=== PATIENT | female | born 1985 | race Caucasian/White ===

== ENCOUNTER 2020-03-27 13:29 | Emergency (ER) | payer SELFPAY ==
[2020-03-27 13:33] VITALS: BP 141/92; PULSE 109; RESP 18; TEMP 36.3; O2SAT 100; BMI 25.7
[2020-03-27 13:49] VITALS: BP 141/92; PULSE 109; RESP 15; O2SAT 100
[2020-03-27 14:24] LABS: Basophils % 0.4 %; Eosinophils # 0.1 10^3/uL (0.0-0.8); Eosinophils % 2.1 %; Hemoglobin 9.9 g/dL (11.5-15.3); Lymphocytes # 1.1 10^3/uL (0.8-4.8); Lymphocytes % 21.1 %; Mean Corpuscular HGB Conc 30.9 g/dL (30.0-36.0); Mean Corpuscular Hemoglobin 26.5 pg (28.0-34.0); Mean Corpuscular Volume 85.6 fL (81-99); Monocytes # 0.4 10^3/uL (0.2-0.9); Neutrophils # 3.68 10^3/uL (1.8-7.7); Neutrophils % 69.2 %; Nucleated Red Blood Cells % 0 %; Platelet Count 189 10^3/cmm (130-400); Red Blood Count 3.74 10^6/uL (4.1-5.3); Red Cell Distribution Width 14.1 % (12.1-15.1); White Blood Count 5.3 10^3/uL (4.0-10.0)
--- NOTE | 2020-03-27 14:28 | ED_ITS ---
HPI - General Adult General: Chief complaint: General Medical Stated complaint: swelling in feet and ankles Time Seen by Provider: 03/27/20 13:34 Source: patient and family Mode of arrival: ambulatory Limitations: no limitations History of Present Illness: HPI narrative: Patient is a 34-year-old female who presents to ED today with multiple medical complaints. It is hard to truly follow patient's symptomology as her speech is excessive and she often bounces from topic to topic. She seems to complain about right ear pain and fullness as well as a sore throat over the past few days. She often speaks about her chronic neck and back pain. States she has been falling asleep in weird positions causing her neck pain to worsen. She is complaining of bilateral lower extremity swelling that she has had intermittently over the past year or so however seems to be worse over the past 3 days. She complains of a rash mainly to her left lower extremity. She has been seen for this rash several times by previous providers and placed on antibiotics and steroids without improvement. She has an appointment with Dr. Hamilton, dermatology, on Friday for evaluation of the rash. When directly asked, she states her main concern/complaint today seems to be the bilateral leg swelling. Associated symptoms: Reports rash; Deny chest pain, dyspnea, headache(s), malaise, nausea, palpitations, syncope or vomiting Review of Systems Const: Reports: fatigue; Denies: fever(s), chills, body aches, change in appetite, change in weight or malaise Eyes: Denies: change in vision, blurry vision, photophobia, floaters or seeing flashes ENMT: Reports: throat pain, odynophagia and ear or mastoid pain; Denies: swelling of lips/tongue, ear discharge, change in hearing, tinnitus, nasal discharge, nasal congestion or sinus pain Card: Reports: swelling of feet/ankles; Denies: chest pain, palpitations, irregular heart rhythm, edema, lightheadedness, syncope, pre-syncope, dyspnea on exertion, orthopnea, leg pain with exertion or acrocyanosis Resp: Denies: dyspnea, productive cough, non-productive cough, pain on inspiration, change in phlegm color, hemoptysis or chest congestion GI: Denies: abdominal pain, nausea, vomiting, heartburn or diarrhea : Denies: flank pain, difficulty voiding, dysuria, urinary frequency, urinary urgency or urinary hesitancy Musc: Reports: neck pain (chronic), extremity pain and extremity swelling; Denies: back pain (chronic), joint pain, joint swelling, joint redness, joint warmth, joint stiffness, limited range of motion, muscle cramps or muscle weakness Skin/Breast: Reports: rash and pruritus Neuro: Denies: headache(s), numbness in extremities, weakness in extremities, sensory changes, difficulty walking, dizziness, vertigo or Slurred speech present PFSH ED PFSH: Medical History (Updated 03/27/20 @ 15:25 by CLAYTON Han) Agoraphobia with panic attacks Chronic back pain Degenerative disc disease, cervical Degenerative disc disease, lumbar Degenerative disc disease, thoracic Generalized anxiety disorder Major depressive disorder, single episode, moderate with anxious distress Nausea Other obsessive-compulsive disorder Social phobia, generalized Surgical History Status post delivery Status post tonsillectomy Family History Father Diabetes Hypertension Mother Diabetes Hypertension Cancer Breast cancer Social History Smoking and tobacco status: former smoker Alcohol intake: former Female Reproductive History: Date of last menstrual period: 07/06/19 Para: 1 Physical Exam Const: COMMON NORMALS: no acute distress, average body habitus, patient oriented x3, no limitations, healthy appearing, alert and well nourished GENERAL APPEARANCE: cooperative ORIENTATION/CONSCIOUSNESS: Yes awake, Yes oriented to person, Yes oriented to place and Yes oriented to time HENMT: COMMON NORMALS: normocephalic, atraumatic, hearing grossly normal bilaterally, external ears normal and EAC's normal HEAD & SCALP: normal to inspection, normocephalic and atraumatic FACE & SINUS: normal facial exam and sinuses nontender EXTERNAL EAR: Yes external ears normal EXTERNAL AUDITORY CANAL: EAC's normal TYMPANIC MEMBRANE: TM abnormal TM laterality: right Details: fluid behind TM THROAT: posterior oropharynx normal, tonsils normal and uvula midline Eye: COMMON NORMALS: Equal, round and reactive pupils present, EOMs intact bilaterally, conjunctivae normal and no scleral icterus GENERAL EYE: appearance normal, both eyes and all related structures CONJUNCTIVA: Yes conjunctivae normal PUPIL: Yes Equal, round and reactive pupils present Neck/C-Spine: COMMON NORMALS: full ROM, no lymphadenopathy and no meningeal signs Resp: COMMON NORMALS: normal respiratory effort and clear to auscultation bilaterally AUSCULTATION: clear to auscultation bilaterally Cardio: COMMON NORMALS: regular rate and regular rhythm RATE: regular rate RHYTHM: regular rhythm Back/Pelvis: THORACIC SPINE/UPPER BACK: Yes normal to inspection and Yes thoracic ROM normal LUMBAR SPINE/LOWER BACK: Yes normal to inspection and Yes lumbar ROM normal Extremity: OTHER: mild L>R bilateral LE edema; L side with mild pitting; swelling seems localized to ankles/feet; no calf swelling/tenderness; no changes to color/temp; pulses and cap refill equal bilaterally; rash noted to L LE-see skin assessment Neuro: GARCIA COMA SCALE: document GCS findings Garcia coma scale eye opening: Spontaneous Garcia coma scale verbal response: Orientated [place] coma scale motor response: Obey commands [place] coma scale total score: 15 COMMON NORMALS: patient oriented x3, moves all extremities, no focal motor deficits and no sensory deficits noted SENSORIUM/ORIENTATION: Yes alert, Yes oriented to person, Yes oriented to place and Yes oriented to time MENINGEAL SIGNS: Yes no meningeal signs Skin: OTHER: pt has hundreds of small erythematous papules, some of which are scabbed, to L LE; she has a few lesions to R LE and lower abdomen; there are no fluid filled lesions, plaques, or central clearings at this time Course Vital Signs: Vital signs: Vital Signs Temperature 97.3 F L 03/27/20 13:33 Pulse Rate 109 H 03/27/20 13:49 Respiratory Rate 15 03/27/20 13:49 Blood Pressure 114/85 03/27/20 15:03 Pulse Oximetry 99 03/27/20 15:03 [facility] [place] - General Adult Lab Data: Labs: Lab Results 03/27/20 03/27/20 Range/Units 14:19 14:19 WBC 5.3 (4.0-10.0) 10^3/ uL RBC 3.74 L (4.1-5.3) 10^6/u L Hgb 9.9 L (11.5-15.3) g/dL Hct 32.0 L (37.0-47.0) % MCV 85.6 (81-99) fL MCH 26.5 L (28.0-34.0) pg MCHC 30.9 (30.0-36.0) g/dL RDW 14.1 (12.1-15.1) % Plt Count 189 (130-400) 10^3/c mm MPV 10.0 (7.4-10.4) fL Neut % (Auto) 69.2 % Lymph % (Auto) 21.1 % [place] % (Auto) 7.0 % Eos % (Auto) 2.1 % Baso % (Auto) 0.4 % Neut # (Auto) 3.68 (1.8-7.7) 10^3/u L Lymph # (Auto) 1.1 (0.8-4.8) 10^3/u L [place] # (Auto) 0.4 (0.2-0.9) 10^3/u L Eos # (Auto) 0.1 (0.0-0.8) 10^3/u L Baso # (Auto) 0.0 (0.0-0.1) 10^3/u L Nucleated RBC % (a uto) 0 % Nucleated RBCs # 0.0 /100WBC Sodium 139 (136-145) mmol/L Potassium 3.9 (3.5-5.1) mmol/L Chloride 105 (98-107) mmol/L Carbon Dioxide 28 (22-29) mmol/L Anion Gap 9.9 (5-19) BUN 8 (6-20) mg/dL Creatinine 0.6 (0.5-0.9) mg/dL GFR Calculation 113.8 (90-130) mL/min Glucose 96 (65-115) mg/dL Calculated Osmolal ity 284 L (285-295) mOsm/k g Calcium 8.4 L (8.5-10.5) mg/dL Total Bilirubin 0.4 (0.15-1.2) mg/dL AST 17 (0-32) U/L ALT 25 (0-33) U/L Alkaline Phosphata se 99 (35-105) IU/L NT-Pro-B Natriuret Pep 48 (0-125) pg/mL Total Protein 6.5 L (6.6-8.7) g/dL Albumin 4.1 (3.5-5.2) g/dL Globulin 2.4 (1.3-4.6) g/dL Discharge Plan Discharge Patient Disposition: Home Clinical Impression: Bilateral edema of lower extremity, Rash Acute serous otitis media, right ear Qualifiers: Recurrence: non-recurrent Qualified Code(s): H65.01 - Acute serous otitis media, right ear Condition: Stable Prescriptions: No Action diazepam 5 mg tablet 5 mg PO TID PRN (Reason: anxiety) Qty: 90 RF: 3 hydroxyzine pamoate [Vistaril] 50 mg capsule 50 mg PO BID PRN (Reason: anxiety) Qty: 60 RF: 3 ibuprofen 800 mg tablet 800 mg PO Q8H PRN (Reason: pain) 30 Days Qty: 90 RF: 0 pantoprazole [Protonix] 40 mg tablet,delayed release (DR/EC) 40 mg PO QAM 30 Days Qty: 30 RF: 1 ondansetron HCl [Zofran] 4 mg tablet 4 mg PO Q8H PRN (Reason: nausea and vomiting) 5 Days Qty: 15 RF: 0 Multiple Vitamins Tablet 1 tab PO DAILY RF: 0 buspirone 10 mg Tablet 10 mg PO TID RF: 0 vitamin B complex Tablet 1 tab PO DAILY RF: 0 Elderberry Tabs 2 tab PO DAILY RF: 0 Vitamin C 2 tab PO DAILY RF: 0 Vitamin D3 1 tab PO PRN RF: 0 Remeron 15 mg tablet 7.5 mg PO BEDTIME RF: 0 Lexapro 20 mg tablet 20 mg PO QAM RF: 0 Discharge Orders: Discharge Order (Routine); Ordered 03/27/20 Ordered By: Rena Lorenzo Patient Instructions: Leg Edema (ED) Activity Restrictions/Additional Instructions: As discussed you may begin using compression stockings and elevating your extremities. Please follow-up with Dr. Hamilton on Friday for evaluation of your rash. Coding Level of Care Code ED Civil Engineer'S Aide for Flaca Fwgeraldo Exam Comprehensive
[2020-03-27 14:55] LABS: Alanine Aminotransferase 25 U/L (0-33); Albumin Level 4.1 g/dL (3.5-5.2); Alkaline Phosphatase 99 IU/L (35-105); Anion Gap 9.9 (5-19); Aspartate Amino Transferase 17 U/L (0-32); Blood Urea Nitrogen 8 mg/dL (6-20); Calcium 8.4 mg/dL (8.5-10.5); Carbon Dioxide 28 mmol/L (22-29); Chloride 105 mmol/L (98-107); Globulin 2.4 g/dL (1.3-4.6); Glomerular Filtration Rate 113.8 mL/min (90-130); Glucose 96 mg/dL (65-115); NT Pro B Type Natriuretic Pept 48 pg/mL (0-125); Osmolality Calculated 284 mOsm/kg (285-295); Potassium 3.9 mmol/L (3.5-5.1); Sodium 139 mmol/L (136-145); Total Bilirubin 0.4 mg/dL (0.15-1.2); Total Protein 6.5 g/dL (6.6-8.7)
[2020-03-27 15:03] VITALS: BP 114/85; O2SAT 99
[2020-03-27 15:33] VITALS: BP 114/85; PULSE 100; RESP 16; O2SAT 100
== END 2020-03-27 15:34 | disposition home or self-care (01) ==
PROVIDERS: Emergency Provider Physician Assistant
DX: R60.0 Localized edema (principal); R21 Rash and other nonspecific skin eruption; H65.01 Acute serous otitis media, right ear; Z87.891 Personal history of nicotine dependence
CPT/HCPCS: 12345; 36415; 80053; 83880; 85025; 99282

== ENCOUNTER → 2023-09-05 15:41 | Outpatient (BNVA) | payer BC, MEDICAID, SELFPAY | PROVIDERS: PCP Nurse Practitioner Family; Visit Provider Nurse Practitioner Family | DX: R68.89 Other general symptoms and signs (principal) | CPT/HCPCS: 87400 ==

== ENCOUNTER 2023-11-05 14:08 | Outpatient (CLI) | payer BC, MEDICAID, SELFPAY ==
--- NOTE | 2023-11-05 14:21 | XR_ITS ---
WS: [id number] Examination: XR cervical spine min 6V [id number] Reason for Exam: M54.2 - Cervicalgia Date: November 05, 2023 Comparison: None. Findings: The ARLINE and C1-2 relationship are intact. There is no prevertebral swelling The vertebral body heights are maintained. There is no wedging or compression. There is no subluxatio n. The spinolaminar line is intact. Disc space height is generally well maintained. The neural foramen appear maintained Impression: There is no compression or subluxation No significant degenerative changes are identified.
--- NOTE | 2023-11-05 14:21 | XR_ITS ---
WS: [id number] Examination: XR shoulder RT min 2V* [id number] Reason for Exam: M25.511 - Pain in right shoulder Date: November 05, 2023 Comparison: None. Findings: The bone density is maintained. There is no destruction There is no displaced fracture or dislocation The AC joint is intact on these nonstress views. Minimal AC joint spurring is present. Impression: No acute bony abnormality is identified.
== END 2023-11-05 14:09 | disposition home or self-care (01) ==
LOC: RAD 14:11
PROVIDERS: PCP Nurse Practitioner Family; Visit Provider Nurse Practitioner Family
DX: M54.2 Cervicalgia (principal); M25.511 Pain in right shoulder; G89.29 Other chronic pain
CPT/HCPCS: 72052; 73030

== ENCOUNTER 2023-11-07 13:31 | Outpatient (CLI) | payer BC, MEDICAID, SELFPAY ==
--- NOTE | 2023-11-07 14:00 | MM_ITS ---
WS: [id number] BILATERAL 3D TOMOSYNTHESIS DIGITAL SCREENING MAMMOGRAPHY WITH CAD CLINICAL INFORMATION: Z12.31 - Encounter for screening mammogram for malignant ... HISTORY: Screening mammogram. No current complaints. COMPARISON: Baseline TECHNIQUE: Bilateral CC and MLO views. FINDINGS: The breasts are composed of heterogeneous fibroglandular density tissue, which can limit the detectio n of small underlying mass lesions. No suspicious mass, asymmetry, calcifications, or architectural d istortion. No evidence of malignancy. IMPRESSION: MM/[place] [id number] BI-RADS: 1-Negative FOLLOW UP: 1 Year Follow-up Recommend return to annual screening mammography.
== END 2023-11-07 13:32 | disposition home or self-care (01) ==
LOC: RAD 13:31
PROVIDERS: PCP Nurse Practitioner Family; Visit Provider Nurse Practitioner Family
DX: Z12.31 Encounter for screening mammogram for malignant neoplasm of breast (principal)
CPT/HCPCS: 77063; 77067

== ENCOUNTER → 2024-05-05 14:36 | Outpatient (BNVA) | payer BC, MEDICAID, SELFPAY | PROVIDERS: PCP Nurse Practitioner Family; Visit Provider Nurse Practitioner Family | DX: K59.00 Constipation, unspecified (principal) | CPT/HCPCS: 74018 ==

== ENCOUNTER → 2024-06-17 11:30 | Outpatient (BNVA) | payer BC, SELFPAY | PROVIDERS: PCP Nurse Practitioner Family; Visit Provider Nurse Practitioner Psychiatric/Mental Health | DX: K59.00 Constipation, unspecified (principal); Z03.89 Encounter for observation for other suspected diseases and conditions ruled out | CPT/HCPCS: 80306 ==

== ENCOUNTER → 2024-09-14 16:46 | Outpatient (BNVA) | payer BC, SELFPAY | PROVIDERS: PCP Nurse Practitioner Family; Visit Provider Nurse Practitioner Family | DX: R59.0 Localized enlarged lymph nodes (principal); N89.8 Other specified noninflammatory disorders of vagina | CPT/HCPCS: 87491; 87591 ==

== ENCOUNTER → 2024-09-15 11:47 | Outpatient (BNVA) | payer BC, SELFPAY | PROVIDERS: PCP Nurse Practitioner Family; Visit Provider Nurse Practitioner Family | DX: R59.0 Localized enlarged lymph nodes (principal); N89.8 Other specified noninflammatory disorders of vagina | CPT/HCPCS: 87070; 87205 ==

== ENCOUNTER 2024-10-01 11:39 | Outpatient (CLI) | payer BC, SELFPAY ==
--- NOTE | 2024-10-01 11:45 | US_ITS ---
WS: [id number] ULTRASOUND SOFT TISSUES LEFT inguinal canal HISTORY: R59.0 - Localized enlarged lymph nodes COMPARISON: None available. TECHNIQUE: 2-D and color Doppler imaging is submitted. Abnormal lymph nodes in the LEFT inguinal canal. One lymph node is very enlarged with loss of the normal fatty hilum and marked cortical thickening. This lymph node measures 1.3 x 1.2 x 1.3 cm. There are a few additional lymph nodes which are also slightly abnormal but still maintain their reniform shape. US/US soft tissue/extremity [id number] IMPRESSION: LEFT inguinal lymphadenopathy. Neoplastic versus reactive adenopathy.
== END 2024-10-01 11:40 | disposition home or self-care (01) ==
PROVIDERS: PCP Nurse Practitioner Family; Visit Provider Nurse Practitioner Family
DX: R59.0 Localized enlarged lymph nodes (principal)
CPT/HCPCS: 76882

== ENCOUNTER → 2024-10-05 14:36 | Outpatient (BNVA) | payer SELFPAY | PROVIDERS: PCP Nurse Practitioner Family; Visit Provider Nurse Practitioner Family | DX: R59.0 Localized enlarged lymph nodes (principal); F41.1 Generalized anxiety disorder; Z79.899 Other long term (current) drug therapy; Z13.6 Encounter for screening for cardiovascular disorders; D64.9 Anemia, unspecified; R79.82 Elevated C-reactive protein (CRP); E55.9 Vitamin D deficiency, unspecified | CPT/HCPCS: 80053; 81003; 82306; 82607; 82728; 82746; 83036; 83550; 84443; 85025; 85651; 86140; 87086; 87400 ==

== ENCOUNTER 2024-10-28 07:56 | Outpatient (CLI) | payer BC, MEDICAID, SELFPAY ==
[2024-10-28] MEDS: iohexol 350 mg/mL 500 mL Btl (per mL) PO (08:43)
--- NOTE | 2024-10-28 08:45 | CT_ITS ---
WS: [id number] CT ABDOMEN AND PELVIS WITH CONTRAST HISTORY: R59.0 - Localized enlarged lymph nodes TECHNIQUE: Imaging performed of the abdomen and pelvis with IV contrast. Single phase imaging of the abdomen. Coronal and sagittal reformats are submitted. All CT scans at [facility] use at least one of these dose optimization techniques: automated exposure control; mA and/or kV adjustment per patient size (includes targeted exams where dose is matched to clinical indication); or iterative reconstruction. IV CONTRAST: Omnipaque 350; 100 mL IV. Oral contrast: Yes. DLP: 374.50 mGy.cm COMPARISON: Ultrasound 10/01/2024. Prior CT 01/11/2015 Lower thorax: Lung bases are clear. Heart is normal size. No hiatal hernia. Liver/biliary system: Normal size liver with a few scattered too small to characterize hypodensities. No intrahepatic duct dilatation. Gallbladder: Normal. No gallstones or wall thickening. No pericholecystic fluid. Pancreas: Normal size pancreas and pancreatic duct. No adjacent inflammation. Spleen: Normal size spleen. No mass or infarct. Adrenal glands: Normal. Right kidney: Normal. Left kidney: Normal. Aorta: Normal. Lymphadenopathy: No retroperitoneal or mesenteric adenopathy. Free fluid: None. GI tract: No obstruction or colitis. Appendix is not definitely identified. Abdominal wall: Tiny umbilical hernia. Pelvis: Prior LEFT oophorectomy. Uterus is slightly enlarged and heterogeneous. Similar to the prior examination. Suspect fibroids. RIGHT ovary is enlarged measuring 3.0 x 4.4 x 4.7 cm. Several prominent follicles within the ovary. The largest 2.8 x 2.9 cm. Small mildly hypervascular lymph nodes in the LEFT inguinal region correspond to the findings on prior ultrasound. These lymph nodes are not significantly enlarged but hypervascular. Suspect these are probably reactive. Bones: Degenerative disc disease at L5-S1. CT/CT abdomen pelvis w con* [id number] IMPRESSION: 1. Small but hypervascular LEFT inguinal lymph nodes. These may be reactive. N o additional adenopathy in the abdomen or pelvis. 2. Mildly enlarged RIGHT ovary with dominant follicle. 3. Prior LEFT oophorectomy. 4. No GI tract obstruction.
[2024-10-28] MEDS: iohexol 350 mg/mL 500 mL Btl (per mL) IV (09:01)
== END 2024-10-28 07:57 | disposition home or self-care (01) ==
PROVIDERS: PCP Nurse Practitioner Family; Visit Provider Nurse Practitioner Family
DX: R59.0 Localized enlarged lymph nodes (principal); Z98.890 Other specified postprocedural states; N85.2 Hypertrophy of uterus; N83.8 Other noninflammatory disorders of ovary, fallopian tube and broad ligament; M51.379 Other intervertebral disc degeneration, lumbosacral region without mention of lumbar back pain or lower extremity pain
CPT/HCPCS: 74177

== ENCOUNTER → 2024-11-03 12:21 | Outpatient (BNVA) | payer BC, MEDICAID, SELFPAY | PROVIDERS: PCP Nurse Practitioner Family; Visit Provider Nurse Practitioner Family | DX: R53.83 Other fatigue (principal); Z79.899 Other long term (current) drug therapy; D49.89 Neoplasm of unspecified behavior of other specified sites; R59.0 Localized enlarged lymph nodes; D50.9 Iron deficiency anemia, unspecified | CPT/HCPCS: 80053; 84439; 84443; 84481; 86376 ==

== ENCOUNTER → 2024-11-09 16:54 | Outpatient (BNVA) | payer BC, MEDICAID, SELFPAY | PROVIDERS: PCP Nurse Practitioner Family; Visit Provider Nurse Practitioner Family | DX: E03.9 Hypothyroidism, unspecified (principal); R39.9 Unspecified symptoms and signs involving the genitourinary system | CPT/HCPCS: 81003; 87086 ==

== ENCOUNTER → 2025-02-09 16:39 | Outpatient (BNVA) | payer BC, MEDICAID, SELFPAY | PROVIDERS: PCP Nurse Practitioner Family; Visit Provider Nurse Practitioner Family | DX: E03.9 Hypothyroidism, unspecified (principal); E55.9 Vitamin D deficiency, unspecified; D50.9 Iron deficiency anemia, unspecified | CPT/HCPCS: 82306; 82728; 83550; 84439; 84443 ==